=== PATIENT | male | born 1975 | race Caucasian/White ===

== ENCOUNTER 2016-07-04 14:04 | Emergency (ER) | payer SELFPAY | END 2016-07-04 16:45 | disposition home or self-care (01) | LOC: D.ER 14:04 | DX: S51.812A Laceration without foreign body of left forearm, initial encounter (principal); W26.9XXA Contact with unspecified sharp object(s), initial encounter; Y93.89 Activity, other specified; Y92.89 Other specified places as the place of occurrence of the external cause ==